=== PATIENT | male | born 1995 | race Caucasian/White ===

== ENCOUNTER 2021-03-26 21:16 | Emergency (ER) | payer BC, OTHER ==
[~2021-03-26] VITALS: Ht 172.7 cm; Wt 96.8 kg
[2021-03-26 22:37] LABS: BASO % 0.4 % (0.0-1.0); EOS # 0.1 10^3/uL (0.0-0.5); EOS % 1.2 % (0.0-3.0); HEMATOCRIT 44.4 % (42.0-52.0); HEMOGLOBIN 15.2 g/dl (13.5-17.5); LYMPH # 3.9 10^3/uL (1.5-5.0); LYMPH % 42.3 % (24.0-44.0); MEAN CORPUSCULAR HGB CONC 34.2 g/dl (32.0-36.5); MEAN CORPUSCULAR VOLUME 90.6 fl (80.0-96.0); MONO # 0.7 10^3/uL (0.0-0.8); MONO % 7.6 % (2.0-8.0); NEUTROPHILS # 4.5 10^3/uL (1.5-8.5); NEUTROPHILS % 48.2 % (36.0-66.0); PLATELET COUNT, AUTOMATED 243 10^3/uL (150-450); WHITE BLOOD COUNT 9.3 10^3/uL (4.0-10.0)
[2021-03-26 23:00] LABS: ALBUMIN 4.3 GM/DL (3.2-5.2); BILIRUBIN,DIRECT 0.2 MG/DL (0.0-0.2); BILIRUBIN,TOTAL 0.8 MG/DL (0.2-1.0); TOTAL PROTEIN 7.6 GM/DL (6.4-8.2)
[2021-03-27] MEDS ORDERED: PANTOPRAZOLE 40MG VIAL (C9113 PER 1) IV ONE (00:10)
[2021-03-27] MEDS ORDERED: SUCRALFATE 1 GM TAB PO ONE (00:10)
[2021-03-27] MEDS ORDERED: GI COCKTAIL 50ML BTL(HYOSCYAMINE/MAALOX/LIDOCAINE VISCOUS)(1:3:1) PO ONE (00:10)
[2021-03-27 00:29] LABS: HEMOGLOBIN A1c 9.5 %
[2021-03-27] MEDS ORDERED: ISOVUE-370 76% 100ML VIAL As Ordered ONE (00:35)
--- NOTE | 2021-03-27 01:57 | REPVR ---
PROCEDURE INFORMATION: Exam: CTA Chest With Contrast Exam date and time: 03/27/2021 12:42 AM Age: 26 years old Clinical indication: Chest pain; Additional info: Chest pain x 3 wks, HX vaping, SOB TECHNIQUE: Imaging protocol: Computed tomographic angiography of the chest with contrast. 3D rendering (Not supervised by radiologist): MIP and/or 3D reconstructed images were created by the technologist. Radiation optimization: All CT scans at this facility use at least one of these dose optimization techniques: automated exposure control; mA and/or kV adjustment per patient size (includes targeted exams where dose is matched to clinical indication); or iterative reconstruction. Contrast material: ISOVUE 370; Contrast volume: 100 ml; Contrast route: INTRAVENOUS (IV); COMPARISON: No relevant prior studies available. FINDINGS: Pulmonary arteries: Normal. No pulmonary emboli. Aorta: Unremarkable. No aortic aneurysm. No aortic dissection. Lungs: Clear. No consolidation. No masses. Airways are clear. Pleural spaces: Unremarkable. No pneumothorax. No pleural effusion. Heart: Unremarkable. No cardiomegaly. No pericardial effusion. Lymph nodes: Unremarkable. No enlarged lymph nodes. Liver: There is hepatomegaly and hepatic steatosis. Bones/joints: Unremarkable. No acute fracture. Soft tissues: Unremarkable. IMPRESSION: 1. Hepatic steatosis and hepatomegaly. 2. No acute findings in the chest. Electronically signed by: Román Hammonds On 03/27/2021 01:56:49 AM
[2021-03-27] MEDS ORDERED: METF500T13 PO (02:15)
[2021-03-27] MEDS ORDERED: CARA1TAB6 PO (02:15)
[2021-03-27] MEDS ORDERED: OMEP20TA17 PO (02:15)
[2021-03-27] MEDS ORDERED: metFORMIN (GLUCOPHAGE) 500MG TAB PO ONE (02:20)
[2021-03-27 02:34] VITALS: BP 162/86
--- NOTE | 2021-03-27 20:05 | ECGEPIP ---
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
== END 2021-03-27 02:34 | disposition home or self-care (01) ==
LOC: M ED 21:16
DX: R07.89 Other chest pain (principal); R10.13 Epigastric pain; R73.9 Hyperglycemia, unspecified; K76.0 Fatty (change of) liver, not elsewhere classified; R16.0 Hepatomegaly, not elsewhere classified; Z87.891 Personal history of nicotine dependence; Z79.899 Other long term (current) drug therapy
CPT/HCPCS: 71275; 80047; 80076; 83036; 83690; 85025; 93005; 96374; 99284; C9113; Q9967

== ENCOUNTER → 2021-06-28 | Outpatient (REF) | payer OTHER ==
[~2021-06-28] MED LIST: CARA1TAB6 PO; METF500T13 PO; OMEP20TA17 PO
== END ==
LOC: M SFHCPLAZ 10:47
PROVIDERS: ATTEND Family Medicine
DX: Z53.9 Procedure and treatment not carried out, unspecified reason (principal)

== ENCOUNTER 2024-03-03 23:52 | Inpatient (IN) | payer MEDICAID, OTHER ==
[~2024-03-03] VITALS: Ht 172.7 cm; Wt 100.6 kg
[2024-03-04] VITALS (9 sets, daily range): BP systolic 111–162; BP diastolic 66–96; TEMP 99.1–105.5; O2SAT 92–96
[2024-03-04 00:53] LABS: VENOUS BASE EXCESS -5.2 (-2.0-2.0); VENOUS O2 SATURATION 95.6 % (60.0-80.0); VENOUS PARTIAL PRESSURE CO2 29.8 mmHg (38.0-50.0); VENOUS PARTIAL PRESSURE O2 78.4 mmHg (30.0-50.0); VENOUS STANDARD HCO3 20.2 MMOL/L
[2024-03-04 01:02] LABS: BASO % 0.2 % (0.0-1.0); HEMATOCRIT 44.2 % (42.0-52.0); HEMOGLOBIN 15.3 g/dl (13.5-17.5); LYMPH # 0.8 10^3/uL (1.5-5.0); LYMPH % 4.2 % (24.0-44.0); MEAN CORPUSCULAR HEMOGLOBIN 31.7 pg (27.0-33.0); MEAN CORPUSCULAR HGB CONC 34.6 g/dl (32.0-36.5); MEAN CORPUSCULAR VOLUME 91.7 fl (80.0-96.0); MONO # 1.7 10^3/uL (0.0-0.8); MONO % 8.6 % (2.0-8.0); NEUTROPHILS # 16.9 10^3/uL (1.5-8.5); NEUTROPHILS % 86.3 % (36.0-66.0); PLATELET COUNT, AUTOMATED 237 10^3/uL (150-450); RED BLOOD COUNT 4.82 10^6/uL (4.30-6.10); WHITE BLOOD COUNT 19.6 10^3/uL (4.0-10.0)
[2024-03-04 01:18] LABS: LIPASE 32 U/L (12-53)
[2024-03-04 01:20] LABS: ACETONE/KETONE 2.75 MMOL/L (0.02-0.27); ALBUMIN 3.6 G/DL (3.2-5.2); ALKALINE PHOSPHATASE 74 U/L (46-116); ALT/SGPT 19 U/L (7.0-40); AST/SGOT 18 U/L (<34); BILIRUBIN,DIRECT 0.5 MG/DL (<0.4); BILIRUBIN,TOTAL 1.5 MG/DL (0.3-1.2); BLOOD UREA NITROGEN 8 MG/DL (9-23); CALCIUM LEVEL 9.2 MG/DL (8.5-10.1); CARBON DIOXIDE LEVEL 19 MMOL/L (20-31); CHLORIDE LEVEL 97 MMOL/L (98-107); GLOMERULAR FILTRATION RATE > 60.0 (>60); GLUCOSE, FASTING 300 MG/DL (60-100); POTASSIUM SERUM 3.3 MMOL/L (3.5-5.1); SODIUM LEVEL 132 MMOL/L (136-145); TOTAL PROTEIN 7.2 G/DL (5.7-8.2)
[2024-03-04 01:25] LABS: HEMOGLOBIN A1c 11.6 % (4.0-6.0)
[2024-03-04] MEDS: NS 2,860 ML in IV 1 EA IV ONE (03:24)
[2024-03-04] MEDS: MORPHINE 2 MG/ML 1ML VIAL IV ONE (03:40)
[2024-03-04] MEDS: HumuLIN R (REGULAR) INSULIN (NovoLIN R) **100U/ML** PER UNIT IV ONE (03:41)
[2024-03-04] MEDS: ACETAMINOPHEN TAB 650MG DOSE (2X325MG) PO ONE (03:42)
[2024-03-04 04:02] LABS: CK-MB VALUE MASS < 1.0 NG/ML (<3.6)
[2024-03-04 04:04] LABS: ACETONE/KETONE 2.69 MMOL/L (0.02-0.27); CPK CREATINE PHOSPHOKINASE 75 U/L (46-171); MB/CK RELATIVE INDEX 1.33 (< OR =4)
[2024-03-04] MEDS ORDERED: ISOVUE-370 76% 100ML VIAL As Ordered ONE (04:15)
[2024-03-04] MEDS ORDERED: VANCOMYCIN HCL 1,000 MG in IV FLUID PLACE HOLDER 1 EA IV ONE (05:35)
[2024-03-04] MEDS ORDERED: INSULIN REGULAR IN 0.9 % NACL 100 UNIT in IV 1 EA IV SCH (05:40)
[2024-03-04] MEDS ORDERED: INSULIN IV RATE CHANGE DOCUMENTATION ML/HR XX SCH (05:40)
[2024-03-04] MEDS ORDERED: DEXTROSE 50% 50ML SYRINGE IV PRN (05:45)
[2024-03-04] MEDS ORDERED: GLUCOSE 4 GM CHEW PO PRN (05:45)
[2024-03-04] MEDS ORDERED: LR 1,000 ML IV SCH (05:45)
[2024-03-04] MEDS ORDERED: VANCOMYCIN HCL 1,500 MG, VIAL MATE ADAPTER 1 EACH in NS 250 ML IV SCH (05:45)
[2024-03-04] MEDS ORDERED: GLUCAGON INJ 1MG VIAL SC PRN (05:45)
[2024-03-04] MEDS ORDERED: HYDROMORPHONE HCL 0.5 MG/ 0.5 ML SYRINGE IV PRN (05:45)
[2024-03-04] MEDS: PIPERACILLIN/TAZOBACTAM SOD 4.5 GM in D5W MINI-BAG PLUS 50 ML IV ONE (06:03)
[2024-03-04] MEDS: INSULIN LISPRO (NovoLOG) PER UNIT SC SCH ×3 (06:41→20:46)
[2024-03-04] MEDS: VANCOMYCIN HCL 1,000 MG, VIAL MATE ADAPTER 1 EACH in D5W 250 ML IV ONE ×2 (07:20→08:22)
[2024-03-04 07:30] LABS: AMPHETAMINES LEVEL URINE NEGATIVE (NEGATIVE); BARBITURATES URINE NEGATIVE (NEGATIVE); BENZODIAZEPINES URINE NEGATIVE (NEGATIVE); COCAINE METABOLITE URINE NEGATIVE (NEGATIVE)
[2024-03-04 07:31] LABS: CANNABINOIDS URINE NEGATIVE (NEGATIVE); METHADONE URINE NEGATIVE (NEGATIVE); OPIATES URINE NEGATIVE (NEGATIVE); PHENCYCLIDINE URINE NEGATIVE (NEGATIVE)
[2024-03-04] MEDS ORDERED: HOME MED LIST COMPLETE! XX SCH (08:00)
[2024-03-04 08:14] LABS: OSMOLALITY SERUM 289 MOSM/KG (275-295)
[2024-03-04] MEDS: NS 1,000 ML IV ONE ×2 (08:22→15:31)
[2024-03-04] MEDS: ACETAMINOPHEN TAB 650MG DOSE (2X325MG) PO PRN (08:32)
[2024-03-04 08:38] LABS: BLOOD UREA NITROGEN 8 MG/DL (9-23); CALCIUM LEVEL 8.3 MG/DL (8.5-10.1); CARBON DIOXIDE LEVEL 21 MMOL/L (20-31); CHLORIDE LEVEL 100 MMOL/L (98-107); CREATININE FOR GFR 0.52 MG/DL (0.70-1.30); GLOMERULAR FILTRATION RATE > 60.0 (>60); GLUCOSE, FASTING 229 MG/DL (60-100); POTASSIUM SERUM 3.5 MMOL/L (3.5-5.1); SODIUM LEVEL 133 MMOL/L (136-145)
[2024-03-04] MEDS: KETOROLAC 30 MG/ML 1ML VIAL IV ONE ×3 (08:50→23:31)
[2024-03-04 09:08] LABS: ABG BASE EXCESS -3.7 (-2.0-2.0); ABG HCO3 18.7 MMOL/L (22.0-26.0); ABG O2 SATURATION 95.4 % (95.0-99.0); ABG PARTIAL PRESSURE CO2 27.4 mmHg (35.0-45.0); ABG PARTIAL PRESSURE O2 73.7 mmHg (75.0-100.0); ABG STANDARD HCO3 21.4 MMOL/L. (22.0-26.0); ABG TOTAL CO2 19.5 MMOL/L (22.0-29.0); ABG pH (ARTERIAL) 7.452 UNITS (7.350-7.450)
[2024-03-04] MEDS: SODIUM CHLORIDE 0.9% 1000ML IV ONE (09:26)
[2024-03-04] MEDS: PIPERACILLIN/TAZOBACTAM SOD 3.375 GM in D5W MINI-BAG PLUS 50 ML IV SCH (11:31)
[2024-03-04] MEDS ORDERED: PERCOCET 5MG/325MG TAB PO PRN ×2 (12:35)
[2024-03-04 13:27] LABS: HEMATOCRIT 43.4 % (42.0-52.0); HEMOGLOBIN 14.5 g/dl (13.5-17.5); MEAN CORPUSCULAR HEMOGLOBIN 31.3 pg (27.0-33.0); MEAN CORPUSCULAR HGB CONC 33.4 g/dl (32.0-36.5); MEAN CORPUSCULAR VOLUME 93.7 fl (80.0-96.0); PLATELET COUNT, AUTOMATED 174 10^3/uL (150-450); RED BLOOD COUNT 4.63 10^6/uL (4.30-6.10); WHITE BLOOD COUNT 11.7 10^3/uL (4.0-10.0)
[2024-03-04] MEDS: METOPROLOL TART 25 MG TABLET PO ONE (13:38)
[2024-03-04] MEDS: VANCOMYCIN HCL 1,000 MG, VIAL MATE ADAPTER 1 EACH in D5W 250 ML IV SCH (13:52)
[2024-03-04 14:00] LABS: FREE T4 1.18 NG/DL (0.89-1.76); THYROID STIMULATING HORMONE 0.702 uIU/ML (0.55-4.78); TOTAL T3 74.6 NG/DL (60.0-181.0)
[2024-03-04 14:40] LABS: LYMPHOCYTES 3 % (16-44); MONOCYTES 7 % (0-5); NEUTROPHILS 82 % (28-66); PLATELET ESTIMATE NORMAL (NORMAL)
[2024-03-04] MEDS: ACETAMINOPHEN *IV* 1,000 MG in IV 1 EA IV ONE ×2 (15:31→21:59)
[2024-03-04] MEDS: LEVEMIR (INSULIN DETEMIR) 1 UNITS/0.01ML SC SCH (20:46)
[2024-03-04] MEDS: HEPARIN SOD (PORCINE) 5000UNITS/ML 1ML VIAL/SYRINGE SC SCH (20:47)
[2024-03-04 22:17] LABS: ABG BASE EXCESS -6.4 (-2.0-2.0); ABG HCO3 16.6 MMOL/L (22.0-26.0); ABG O2 SATURATION 96.5 % (95.0-99.0); ABG PARTIAL PRESSURE CO2 26.8 mmHg (35.0-45.0); ABG PARTIAL PRESSURE O2 80.3 mmHg (75.0-100.0); ABG STANDARD HCO3 19.3 MMOL/L. (22.0-26.0); ABG TOTAL CO2 17.4 MMOL/L (22.0-29.0)
[2024-03-04] MEDS: FUROSEMIDE 100MG/10ML VIAL IV ONE (23:08)
[2024-03-05] VITALS (38 sets, daily range): BP systolic 108–136; BP diastolic 58–95; TEMP 99.7–103.1; O2SAT 92–98
[2024-03-05] MEDS: ACETAMINOPHEN *IV* 750 MG in IV 1 EA IV ONE (03:29)
[2024-03-05 04:53] LABS: HEMATOCRIT 40.1 % (42.0-52.0); HEMOGLOBIN 13.8 g/dl (13.5-17.5); MEAN CORPUSCULAR HEMOGLOBIN 31.2 pg (27.0-33.0); MEAN CORPUSCULAR HGB CONC 34.4 g/dl (32.0-36.5); MEAN CORPUSCULAR VOLUME 90.7 fl (80.0-96.0); PLATELET COUNT, AUTOMATED 174 10^3/uL (150-450); RED BLOOD COUNT 4.42 10^6/uL (4.30-6.10); WHITE BLOOD COUNT 11.6 10^3/uL (4.0-10.0)
[2024-03-05 05:31] LABS: BLOOD UREA NITROGEN 11 MG/DL (9-23); CALCIUM LEVEL 7.3 MG/DL (8.5-10.1); CARBON DIOXIDE LEVEL 21 MMOL/L (20-31); CHLORIDE LEVEL 104 MMOL/L (98-107); CREATININE FOR GFR 0.61 MG/DL (0.70-1.30); GLOMERULAR FILTRATION RATE > 60.0 (>60); GLUCOSE, FASTING 249 MG/DL (60-100); POTASSIUM SERUM 3.2 MMOL/L (3.5-5.1); SODIUM LEVEL 137 MMOL/L (136-145)
[2024-03-05 05:31] LABS: ATYPICAL LYMPH 1 % (0-5); LYMPHOCYTES 2 % (16-44); METAMYELOCYTES 4 % (0-0); MONOCYTES 4 % (0-5); NEUTROPHILS 75 % (28-66); PLATELET ESTIMATE NORMAL (NORMAL)
[2024-03-05 05:33] LABS: TOXIC GRANULATION 1+
[2024-03-05] MEDS: VANCOMYCIN HCL 1,000 MG, VIAL MATE ADAPTER 1 EACH in D5W 250 ML IV SCH (05:57)
[2024-03-05] MEDS: ASPIRIN 300 MG SUPP PR ONE (06:51)
[2024-03-05] MEDS ORDERED: VANCOMYCIN HCL 1,000 MG, VIAL MATE ADAPTER 1 EACH in D5W 250 ML IV ONE (08:00)
[2024-03-05] MEDS: KCL 10MEQ/100ML SWI (KRUN) 10 MEQ in IV 1 EA IV SCH (08:10)
[2024-03-05] MEDS: POTASSIUM CHLORIDE 10MEQ SR TABLET PO ONE (09:05)
[2024-03-05] MEDS: DAPTOmycin 800 MG in NS 50 ML IV SCH (09:57)
[2024-03-05] MEDS ORDERED: ACETAMINOPHEN 500 MG TAB PO PRN (10:20)
[2024-03-05] MEDS: ACETAMINOPHEN *IV* 1,000 MG in IV 1 EA IV ONE (10:31)
[2024-03-05] MEDS: ONDANSETRON 4MG 2ML VIAL IV PRN (11:32)
[2024-03-05] MEDS: LEVEMIR (INSULIN DETEMIR) 1 UNITS/0.01ML SC SCH (12:47)
[2024-03-05] MEDS: LR 1,000 ML IV SCH (14:37)
[2024-03-05] MEDS: PANTOPRAZOLE 40MG VIAL IV SCH (14:46)
[2024-03-05] MEDS: KETOROLAC 30 MG/ML 1ML VIAL IV ONE ×2 (14:47→22:42)
[2024-03-05] MEDS: ACETAMINOPHEN *IV* 1,000 MG in IV 1 EA IV PRN (20:05)
[2024-03-06] VITALS (19 sets, daily range): BP systolic 115–139; BP diastolic 69–84; TEMP 99.5–102.7; O2SAT 90–97
[2024-03-06 05:24] LABS: HEMOGLOBIN 12.4 g/dl (13.5-17.5); MEAN CORPUSCULAR HEMOGLOBIN 30.6 pg (27.0-33.0); MEAN CORPUSCULAR HGB CONC 33.5 g/dl (32.0-36.5); MEAN CORPUSCULAR VOLUME 91.4 fl (80.0-96.0); PLATELET COUNT, AUTOMATED 178 10^3/uL (150-450); RED BLOOD COUNT 4.05 10^6/uL (4.30-6.10); WHITE BLOOD COUNT 11.2 10^3/uL (4.0-10.0)
[2024-03-06 05:37] LABS: BLOOD UREA NITROGEN 14 MG/DL (9-23); CALCIUM LEVEL 7.9 MG/DL (8.5-10.1); CARBON DIOXIDE LEVEL 24 MMOL/L (20-31); CHLORIDE LEVEL 105 MMOL/L (98-107); CREATININE FOR GFR 0.57 MG/DL (0.70-1.30); GLOMERULAR FILTRATION RATE > 60.0 (>60); GLUCOSE, FASTING 212 MG/DL (60-100); POTASSIUM SERUM 3.4 MMOL/L (3.5-5.1); SODIUM LEVEL 137 MMOL/L (136-145)
[2024-03-06 06:05] LABS: EOSINOPHILS 2 % (0-3); LYMPHOCYTES 8 % (16-44); MONOCYTES 12 % (0-5); NEUTROPHILS 76 % (28-66)
[2024-03-06 06:06] LABS: PLATELET ESTIMATE NORMAL (NORMAL)
[2024-03-06] MEDS: CEFTAROLINE FOSAMIL 600 MG in D5W MINI-BAG PLUS 50 ML IV SCH (08:49)
[2024-03-06] MEDS: POTASSIUM CHLORIDE 10MEQ SR TABLET PO ONE (09:31)
[2024-03-06 10:06] LABS: PROCALCITONIN 43.62 ng/ml
[2024-03-06] MEDS: KETOROLAC 30 MG/ML 1ML VIAL IV ONE ×2 (12:40→23:33)
[2024-03-06] MEDS: ACETAMINOPHEN *IV* 500 MG in IV 1 EA IV ONE (20:37)
[2024-03-07] VITALS (13 sets, daily range): BP systolic 121–151; BP diastolic 77–92; TEMP 97.3–102.4; O2SAT 91–97
[2024-03-07 05:35] LABS: BASO # 0.1 10^3/uL (0.0-0.2); BASO % 0.6 % (0.0-1.0); EOS # 0.1 10^3/uL (0.0-0.5); EOS % 1.1 % (0.0-3.0); HEMATOCRIT 34.6 % (42.0-52.0); HEMOGLOBIN 11.8 g/dl (13.5-17.5); LYMPH # 1.5 10^3/uL (1.5-5.0); LYMPH % 15.5 % (24.0-44.0); MEAN CORPUSCULAR HEMOGLOBIN 30.9 pg (27.0-33.0); MEAN CORPUSCULAR HGB CONC 34.1 g/dl (32.0-36.5); MEAN CORPUSCULAR VOLUME 90.6 fl (80.0-96.0); MONO # 1.4 10^3/uL (0.0-0.8); NEUTROPHILS # 6.6 10^3/uL (1.5-8.5); NEUTROPHILS % 66.9 % (36.0-66.0); PLATELET COUNT, AUTOMATED 208 10^3/uL (150-450); RED BLOOD COUNT 3.82 10^6/uL (4.30-6.10); WHITE BLOOD COUNT 9.8 10^3/uL (4.0-10.0)
[2024-03-07 05:55] LABS: BLOOD UREA NITROGEN 14 MG/DL (9-23); CARBON DIOXIDE LEVEL 27 MMOL/L (20-31); CHLORIDE LEVEL 104 MMOL/L (98-107); CREATININE FOR GFR 0.55 MG/DL (0.70-1.30); GLOMERULAR FILTRATION RATE > 60.0 (>60); GLUCOSE, FASTING 201 MG/DL (60-100); POTASSIUM SERUM 3.2 MMOL/L (3.5-5.1); SODIUM LEVEL 140 MMOL/L (136-145)
[2024-03-07] MEDS: POTASSIUM CHLORIDE 10% LIQ 20MEQ/15ML UDC PO ONE (06:29)
[2024-03-07] MEDS: INSULIN LISPRO (NovoLOG) PER UNIT SC SCH (07:30)
[2024-03-07] MEDS: LEVEMIR (INSULIN DETEMIR) 1 UNITS/0.01ML SC ONE (08:44)
[2024-03-07] MEDS ORDERED: PERCOCET 5MG/325MG TAB PO PRN ×2 (09:40)
[2024-03-07] MEDS: LACTOBACILLUS ACIDOPHILUS CAP (BACID) PO SCH (11:32)
[2024-03-07] MEDS: FUROSEMIDE 20MG/2ML VIAL IV ONE (12:10)
[2024-03-07] MEDS: ACETAMINOPHEN 500 MG TAB PO ONE (14:52)
[2024-03-07] MEDS ORDERED: ACETAMINOPHEN 500 MG TAB PO ONE (14:55)
[2024-03-07] MEDS: IBUPROFEN 400MG TAB PO PRN (22:06)
[2024-03-07] MEDS: ACETAMINOPHEN TAB 650MG DOSE (2X325MG) PO PRN (22:09)
[2024-03-08 01:20] VITALS: BP 111/60; TEMP 98.5; O2SAT 94
[2024-03-08 06:00] VITALS: BP 112/77; TEMP 97.9; O2SAT 97
[2024-03-08 06:21] LABS: BASO # 0.1 10^3/uL (0.0-0.2); BASO % 0.8 % (0.0-1.0); EOS # 0.3 10^3/uL (0.0-0.5); EOS % 2.2 % (0.0-3.0); HEMATOCRIT 36.7 % (42.0-52.0); HEMOGLOBIN 12.8 g/dl (13.5-17.5); LYMPH % 16.4 % (24.0-44.0); MEAN CORPUSCULAR HEMOGLOBIN 31.6 pg (27.0-33.0); MEAN CORPUSCULAR HGB CONC 34.9 g/dl (32.0-36.5); MEAN CORPUSCULAR VOLUME 90.6 fl (80.0-96.0); MONO # 1.5 10^3/uL (0.0-0.8); MONO % 12.8 % (2.0-8.0); NEUTROPHILS # 7.5 10^3/uL (1.5-8.5); NEUTROPHILS % 62.9 % (36.0-66.0); PLATELET COUNT, AUTOMATED 243 10^3/uL (150-450); RED BLOOD COUNT 4.05 10^6/uL (4.30-6.10); WHITE BLOOD COUNT 11.9 10^3/uL (4.0-10.0)
[2024-03-08 06:57] LABS: BLOOD UREA NITROGEN 12 MG/DL (9-23); CARBON DIOXIDE LEVEL 28 MMOL/L (20-31); CHLORIDE LEVEL 102 MMOL/L (98-107); CREATININE FOR GFR 0.59 MG/DL (0.70-1.30); GLOMERULAR FILTRATION RATE > 60.0 (>60); GLUCOSE, FASTING 237 MG/DL (60-100); POTASSIUM SERUM 2.9 MMOL/L (3.5-5.1); SODIUM LEVEL 140 MMOL/L (136-145)
[2024-03-08 07:39] LABS: MAGNESIUM LEVEL 1.8 MG/DL (1.8-2.4)
[2024-03-08] MEDS: LEVEMIR (INSULIN DETEMIR) 1 UNITS/0.01ML SC SCH (08:59)
[2024-03-08] MEDS: POTASSIUM CHLORIDE 10MEQ SR TABLET PO SCH (08:59)
[2024-03-08] MEDS: CEFTAROLINE FOSAMIL 600 MG in D5W MINI-BAG PLUS 50 ML IV SCH (11:04)
[2024-03-08 14:00] VITALS: BP 126/80; TEMP 100.4; O2SAT 94
[2024-03-08 14:12] LABS: IONIZED CALCIUM 4.3 MG/DL (4.5-5.3)
[2024-03-08 14:47] LABS: MAGNESIUM LEVEL 1.7 MG/DL (1.8-2.4); POTASSIUM SERUM 3.2 MMOL/L (3.5-5.1)
[2024-03-08] MEDS: MAG SULF 1GM/100ML (MAG RUN) 1 GM in IV 1 EA IV ONE (15:12)
[2024-03-08 15:16] VITALS: TEMP 101.4
[2024-03-08 16:28] VITALS: TEMP 100.5
[2024-03-08 20:00] VITALS: BP 130/77; TEMP 100.3; O2SAT 95
[2024-03-08] MEDS: IBUPROFEN 800 MG TAB PO ONE (20:23)
[2024-03-09 06:00] VITALS: BP 125/78; TEMP 97.8; O2SAT 92
[2024-03-09 06:48] LABS: HEMATOCRIT 35.9 % (42.0-52.0); HEMOGLOBIN 12.3 g/dl (13.5-17.5); MEAN CORPUSCULAR HEMOGLOBIN 30.8 pg (27.0-33.0); MEAN CORPUSCULAR HGB CONC 34.3 g/dl (32.0-36.5); PLATELET COUNT, AUTOMATED 287 10^3/uL (150-450); RED BLOOD COUNT 3.99 10^6/uL (4.30-6.10)
[2024-03-09 07:22] LABS: BLOOD UREA NITROGEN 8 MG/DL (9-23); CALCIUM LEVEL 7.7 MG/DL (8.5-10.1); CARBON DIOXIDE LEVEL 27 MMOL/L (20-31); CHLORIDE LEVEL 101 MMOL/L (98-107); CREATININE FOR GFR 0.55 MG/DL (0.70-1.30); GLOMERULAR FILTRATION RATE > 60.0 (>60); GLUCOSE, FASTING 275 MG/DL (60-100); POTASSIUM SERUM 3.4 MMOL/L (3.5-5.1); SODIUM LEVEL 136 MMOL/L (136-145)
[2024-03-09 09:19] LABS: ATYPICAL LYMPH 4 % (0-5); BASOPHILS 2 % (0-1); EOSINOPHILS 6 % (0-3); LYMPHOCYTES 17 % (16-44); METAMYELOCYTES 2 % (0-0); MONOCYTES 8 % (0-5); MYELOCYTES 1 % (0-0); NEUTROPHILS 60 % (28-66); PLATELET ESTIMATE NORMAL (NORMAL)
[2024-03-09 10:15] VITALS: O2SAT 92
[2024-03-09 14:08] VITALS: BP 132/83; TEMP 99.3; O2SAT 92
[2024-03-09 17:52] VITALS: TEMP 101.4
[2024-03-09 18:37] VITALS: TEMP 99.3
[2024-03-09 20:05] VITALS: BP 135/83; TEMP 99.2; O2SAT 91
[2024-03-09] MEDS: diphenhydrAMINE 50MG/ML VIAL IV ONE (20:24)
[2024-03-10 05:26] VITALS: BP 135/79; TEMP 99.6; O2SAT 92
[2024-03-10 07:27] LABS: BASO # 0.1 10^3/uL (0.0-0.2); EOS # 0.3 10^3/uL (0.0-0.5); EOS % 2.6 % (0.0-3.0); HEMATOCRIT 36.6 % (42.0-52.0); HEMOGLOBIN 12.4 g/dl (13.5-17.5); LYMPH # 1.9 10^3/uL (1.5-5.0); LYMPH % 19.5 % (24.0-44.0); MEAN CORPUSCULAR HEMOGLOBIN 30.8 pg (27.0-33.0); MEAN CORPUSCULAR HGB CONC 33.9 g/dl (32.0-36.5); MONO # 0.8 10^3/uL (0.0-0.8); MONO % 8.5 % (2.0-8.0); NEUTROPHILS # 5.9 10^3/uL (1.5-8.5); NEUTROPHILS % 60.9 % (36.0-66.0); PLATELET COUNT, AUTOMATED 360 10^3/uL (150-450); RED BLOOD COUNT 4.02 10^6/uL (4.30-6.10); WHITE BLOOD COUNT 9.7 10^3/uL (4.0-10.0)
[2024-03-10 07:52] LABS: BLOOD UREA NITROGEN 9 MG/DL (9-23); CALCIUM LEVEL 8.4 MG/DL (8.5-10.1); CARBON DIOXIDE LEVEL 31 MMOL/L (20-31); CHLORIDE LEVEL 100 MMOL/L (98-107); CREATININE FOR GFR 0.57 MG/DL (0.70-1.30); GLOMERULAR FILTRATION RATE > 60.0 (>60); GLUCOSE, FASTING 285 MG/DL (60-100); POTASSIUM SERUM 3.4 MMOL/L (3.5-5.1); SODIUM LEVEL 138 MMOL/L (136-145)
[2024-03-10] MEDS: POTASSIUM CHLORIDE 10MEQ SR TABLET PO ONE (12:32)
[2024-03-10 13:42] VITALS: BP 133/80; TEMP 98.7; O2SAT 95
[2024-03-10] MEDS ORDERED: LIDOCAINE 2% 100MG/5ML SDV (FOR ANES.) As Ordered ONE (17:57)
[2024-03-10] MEDS ORDERED: propofoL 200 MG/20 ML VIAL As Ordered ONE (17:57)
[2024-03-10] MEDS: CETACAINE SPRAY 5GM As Ordered ONE (18:16)
[2024-03-10 20:03] VITALS: BP 142/88; TEMP 98.2; O2SAT 92
[2024-03-10] MEDS: LR 1,000 ML IV SCH (20:07)
[2024-03-10] MEDS: LEVEMIR (INSULIN DETEMIR) 1 UNITS/0.01ML SC SCH (20:07)
[2024-03-11 06:00] VITALS: BP 125/71; TEMP 98.2; O2SAT 92
[2024-03-11 06:10] LABS: BASO # 0.1 10^3/uL (0.0-0.2); BASO % 0.6 % (0.0-1.0); EOS # 0.2 10^3/uL (0.0-0.5); HEMATOCRIT 34.3 % (42.0-52.0); HEMOGLOBIN 11.8 g/dl (13.5-17.5); LYMPH # 1.9 10^3/uL (1.5-5.0); LYMPH % 21.8 % (24.0-44.0); MEAN CORPUSCULAR HEMOGLOBIN 31.1 pg (27.0-33.0); MEAN CORPUSCULAR HGB CONC 34.4 g/dl (32.0-36.5); MEAN CORPUSCULAR VOLUME 90.5 fl (80.0-96.0); MONO # 0.6 10^3/uL (0.0-0.8); MONO % 6.5 % (2.0-8.0); NEUTROPHILS # 5.7 10^3/uL (1.5-8.5); NEUTROPHILS % 64.1 % (36.0-66.0); PLATELET COUNT, AUTOMATED 394 10^3/uL (150-450); RED BLOOD COUNT 3.79 10^6/uL (4.30-6.10); WHITE BLOOD COUNT 8.9 10^3/uL (4.0-10.0)
[2024-03-11 06:35] LABS: BLOOD UREA NITROGEN 9 MG/DL (9-23); CALCIUM LEVEL 8.4 MG/DL (8.5-10.1); CARBON DIOXIDE LEVEL 28 MMOL/L (20-31); CHLORIDE LEVEL 101 MMOL/L (98-107); CREATININE FOR GFR 0.52 MG/DL (0.70-1.30); GLOMERULAR FILTRATION RATE > 60.0 (>60); GLUCOSE, FASTING 270 MG/DL (60-100); MAGNESIUM LEVEL 1.9 MG/DL (1.8-2.4); POTASSIUM SERUM 3.3 MMOL/L (3.5-5.1); SODIUM LEVEL 137 MMOL/L (136-145)
[2024-03-11] MEDS: POTASSIUM CHLORIDE 10MEQ SR TABLET PO SCH ×2 (08:08→20:12)
[2024-03-11 14:00] VITALS: BP 139/91; TEMP 97.9; O2SAT 96
[2024-03-11] MEDS ORDERED: POTASSIUM CHLORIDE 10MEQ SR TABLET PO SCH (16:00)
[2024-03-11 20:00] VITALS: BP 129/76; TEMP 99; O2SAT 96
[2024-03-12 06:00] VITALS: BP 128/80; TEMP 98.9; O2SAT 94
[2024-03-12 06:19] LABS: BASO % 0.4 % (0.0-1.0); EOS # 0.2 10^3/uL (0.0-0.5); EOS % 1.7 % (0.0-3.0); HEMATOCRIT 33.3 % (42.0-52.0); HEMOGLOBIN 11.2 g/dl (13.5-17.5); LYMPH % 20.6 % (24.0-44.0); MEAN CORPUSCULAR HEMOGLOBIN 30.9 pg (27.0-33.0); MEAN CORPUSCULAR HGB CONC 33.6 g/dl (32.0-36.5); MONO # 0.6 10^3/uL (0.0-0.8); MONO % 6.3 % (2.0-8.0); NEUTROPHILS # 6.5 10^3/uL (1.5-8.5); NEUTROPHILS % 67.6 % (36.0-66.0); PLATELET COUNT, AUTOMATED 412 10^3/uL (150-450); RED BLOOD COUNT 3.62 10^6/uL (4.30-6.10); WHITE BLOOD COUNT 9.6 10^3/uL (4.0-10.0)
[2024-03-12 06:45] LABS: BLOOD UREA NITROGEN 10 MG/DL (9-23); CALCIUM LEVEL 8.2 MG/DL (8.5-10.1); CARBON DIOXIDE LEVEL 27 MMOL/L (20-31); CHLORIDE LEVEL 102 MMOL/L (98-107); CREATININE FOR GFR 0.58 MG/DL (0.70-1.30); GLOMERULAR FILTRATION RATE > 60.0 (>60); GLUCOSE, FASTING 183 MG/DL (60-100); MAGNESIUM LEVEL 1.7 MG/DL (1.8-2.4); POTASSIUM SERUM 3.6 MMOL/L (3.5-5.1); SODIUM LEVEL 140 MMOL/L (136-145)
[2024-03-12] MEDS: MAG SULF 1GM/100ML (MAG RUN) 1 GM in IV 1 EA IV ONE (08:53)
[2024-03-12] MEDS ORDERED: SODIUM CHLORIDE 0.9% INJ 10 ML SYR IV PRN (12:00)
[2024-03-12 14:00] VITALS: BP 129/81; TEMP 97.9; O2SAT 97
[2024-03-12] MEDS: SODIUM CHLORIDE 0.9% INJ 10 ML SYR IV SCH (17:39)
[2024-03-13 06:00] VITALS: BP 120/71; TEMP 98.3; O2SAT 94
[2024-03-13 06:05] LABS: BASO % 0.4 % (0.0-1.0); EOS # 0.2 10^3/uL (0.0-0.5); EOS % 1.9 % (0.0-3.0); HEMATOCRIT 34.4 % (42.0-52.0); HEMOGLOBIN 11.5 g/dl (13.5-17.5); LYMPH # 1.7 10^3/uL (1.5-5.0); LYMPH % 18.7 % (24.0-44.0); MEAN CORPUSCULAR HEMOGLOBIN 30.5 pg (27.0-33.0); MEAN CORPUSCULAR HGB CONC 33.4 g/dl (32.0-36.5); MEAN CORPUSCULAR VOLUME 91.2 fl (80.0-96.0); MONO # 0.6 10^3/uL (0.0-0.8); MONO % 6.8 % (2.0-8.0); NEUTROPHILS # 6.4 10^3/uL (1.5-8.5); NEUTROPHILS % 70.2 % (36.0-66.0); PLATELET COUNT, AUTOMATED 445 10^3/uL (150-450); RED BLOOD COUNT 3.77 10^6/uL (4.30-6.10); WHITE BLOOD COUNT 9.1 10^3/uL (4.0-10.0)
[2024-03-13 06:40] LABS: BLOOD UREA NITROGEN 8 MG/DL (9-23); CALCIUM LEVEL 8.3 MG/DL (8.5-10.1); CARBON DIOXIDE LEVEL 29 MMOL/L (20-31); CHLORIDE LEVEL 104 MMOL/L (98-107); CREATININE FOR GFR 0.54 MG/DL (0.70-1.30); GLOMERULAR FILTRATION RATE > 60.0 (>60); GLUCOSE, FASTING 248 MG/DL (60-100); MAGNESIUM LEVEL 1.9 MG/DL (1.8-2.4); POTASSIUM SERUM 4.3 MMOL/L (3.5-5.1); SODIUM LEVEL 138 MMOL/L (136-145)
[2024-03-13] MEDS ORDERED: METF500T13 PO (13:28)
[2024-03-13] MEDS ORDERED: ACET1TAB55 PO (13:28)
[2024-03-13] MEDS ORDERED: INSUHUMDS SC ×2 (13:28)
[2024-03-13] MEDS ORDERED: INSUDET SC (13:28)
[2024-03-13 14:00] VITALS: BP 124/74; TEMP 98.1; O2SAT 96
== END 2024-03-13 15:37 | disposition home or self-care (01) | DRG 720 ==
LOC: M ED 23:52 → EEVIPCON 03-04 05:45 → M ED INP 03-04 05:45 → ENRESERV 03-04 06:08 → M PCU 03-04 14:59 → M ICU 03-04 23:01 → M MSPAV 03-07 13:05
PROVIDERS: ADMIT Internal Medicine; ATTEND Hospitalist
PROC: 0JBR0ZZ Excision of Left Foot Subcutaneous Tissue and Fascia, Open Approach (ICD-10-PCS; principal; 2024-03-04)
PROC: 4A1 Measurement and Monitoring, Physiological Systems, Monitoring (ICD-10-PCS; 2024-03-10)
DX: A41.02 Sepsis due to Methicillin resistant Staphylococcus aureus (principal); I26.90 Septic pulmonary embolism without acute cor pulmonale; J96.01 Acute respiratory failure with hypoxia; J81.1 Chronic pulmonary edema; E11.65 Type 2 diabetes mellitus with hyperglycemia; E83.51 Hypocalcemia; E87.1 Hypo-osmolality and hyponatremia; E87.21 Acute metabolic acidosis; L02.612 Cutaneous abscess of left foot; L03.116 Cellulitis of left lower limb; R65.20 Severe sepsis without septic shock; F17.210 Nicotine dependence, cigarettes, uncomplicated; I10 Essential (primary) hypertension; K76.0 Fatty (change of) liver, not elsewhere classified; E11.621 Type 2 diabetes mellitus with foot ulcer; L97.529 Non-pressure chronic ulcer of other part of left foot with unspecified severity; Z88.8 Allergy status to other drugs, medicaments and biological substances; Z79.4 Long term (current) use of insulin; Z79.899 Other long term (current) drug therapy; R91.8 Other nonspecific abnormal finding of lung field; E87.6 Hypokalemia; Z91.119 Patient's noncompliance with dietary regimen due to unspecified reason

== ENCOUNTER 2024-03-19 15:52 | Outpatient (CLI) | payer MEDICAID ==
[~2024-03-19 15:52] MED LIST changes: +ACET1TAB55 PO; +INSUDET SC; +INSUHUMDS SC
[2024-03-19] MEDS: SODIUM CHLORIDE 0.9% INJ 10 ML SYR IV PRN (16:27)
[2024-03-19 16:32] LABS: HEMATOCRIT 40.4 % (42.0-52.0); HEMOGLOBIN 13.2 g/dl (13.5-17.5); MEAN CORPUSCULAR HEMOGLOBIN 30.6 pg (27.0-33.0); MEAN CORPUSCULAR HGB CONC 32.7 g/dl (32.0-36.5); MEAN CORPUSCULAR VOLUME 93.7 fl (80.0-96.0); PLATELET COUNT, AUTOMATED 389 10^3/uL (150-450); RED BLOOD COUNT 4.31 10^6/uL (4.30-6.10); WHITE BLOOD COUNT 5.2 10^3/uL (4.0-10.0)
[2024-03-19 16:48] LABS: BLOOD UREA NITROGEN 12 MG/DL (9-23); CALCIUM LEVEL 9.2 MG/DL (8.5-10.1); CARBON DIOXIDE LEVEL 27 MMOL/L (20-31); CHLORIDE LEVEL 103 MMOL/L (98-107); CPK CREATINE PHOSPHOKINASE 47 U/L (46-171); CREATININE FOR GFR 0.45 MG/DL (0.70-1.30); GLOMERULAR FILTRATION RATE > 60.0 (>60); GLUCOSE, FASTING 143 MG/DL (60-100); POTASSIUM SERUM 3.9 MMOL/L (3.5-5.1); SODIUM LEVEL 139 MMOL/L (136-145)
== END 2024-03-19 16:30 | disposition home or self-care (01) ==
LOC: M INFU 15:52
PROVIDERS: ATTEND Hospitalist
DX: Z51.81 Encounter for therapeutic drug level monitoring (principal); Z48.00 Encounter for change or removal of nonsurgical wound dressing

== ENCOUNTER → 2024-03-26 | Outpatient (CLI) | payer MEDICAID ==
[2024-03-26] MEDS: SODIUM CHLORIDE 0.9% INJ 10 ML SYR IV PRN (08:53)
[2024-03-26 09:00] VITALS: BP 132/88; O2SAT 97
[2024-03-26 09:16] LABS: HEMATOCRIT 39.5 % (42.0-52.0); HEMOGLOBIN 13.2 g/dl (13.5-17.5); MEAN CORPUSCULAR HGB CONC 33.4 g/dl (32.0-36.5); MEAN CORPUSCULAR VOLUME 92.7 fl (80.0-96.0); PLATELET COUNT, AUTOMATED 254 10^3/uL (150-450); RED BLOOD COUNT 4.26 10^6/uL (4.30-6.10); WHITE BLOOD COUNT 6.2 10^3/uL (4.0-10.0)
[2024-03-26 09:41] LABS: BLOOD UREA NITROGEN 9 MG/DL (9-23); CALCIUM LEVEL 9.1 MG/DL (8.5-10.1); CARBON DIOXIDE LEVEL 28 MMOL/L (20-31); CHLORIDE LEVEL 103 MMOL/L (98-107); GLOMERULAR FILTRATION RATE > 60.0 (>60); GLUCOSE, FASTING 280 MG/DL (60-100); POTASSIUM SERUM 3.7 MMOL/L (3.5-5.1); SODIUM LEVEL 139 MMOL/L (136-145)
== END ==
LOC: M INFU 08:26
PROVIDERS: ATTEND Hospitalist
DX: Z48.00 Encounter for change or removal of nonsurgical wound dressing (principal); Z51.81 Encounter for therapeutic drug level monitoring; Z88.1 Allergy status to other antibiotic agents